=== PATIENT | male | born 1955 | race Caucasian/White ===

== ENCOUNTER 2025-10-11 17:43 | Emergency (ER) | payer OTHER, SELFPAY ==
[2025-10-11 17:46] VITALS: BP 157/84
[2025-10-11] MEDS: NSS 500 IV (18:35)
[2025-10-11 18:42] VITALS: BP 147/70
[2025-10-11 18:44] VITALS: BP 160/78
[2025-10-11 18:46] VITALS: BP 148/80
[2025-10-11 18:49] VITALS: BP 147/70; BP 148/80; BP 160/78; PULSE 72; PULSE 75; PULSE 84
--- NOTE | 2025-10-11 18:53 | ED.GENMED ---
History of Present Illness
General
Chief Complaint: Fainting/Passed Out
Source: patient
Exam Limitations: none
Time Seen by Provider: 10/11/25 18:13
Nursing documentation reviewed up to this point in time: agreed with
History of Present Illness
History of Present Illness:
see MDM
Past History
Past History
ED Past Medical History: HTN
Social History
Tobacco: Non-smoker
Alcohol: Occasional
Drug: None
Personal:
Review of Systems
Review of Systems
Allergies reviewed?: Yes
All Other Systems: Not applicable
Phy Exam
Physical Exam
Physical Exam:
GENERAL: Alert , in no apparent distress
EYE: pupils equal and reactive
NECK: Supple
ENT: o/p clr, mmm.
CARDIAC: Regular rate and rhythm .
no edema
LUNGS: Clear breath sounds bilaterally, no acute respiratory distress, no wheezes/rales/rhonchi
ABDOMEN: Soft, without focal tenderness, no r/g, no cvat, normal bowel sounds
NEUROLOGICAL: Alert and oriented, no focal neuro deficits
SKIN: Warm and dry, skin intact.
MUSCULOSKELETAL: No edema, well perfused. neg marilee's sign
PSYCH: Normal and appropriate interaction.
Course
Orders/Labs/Results
Orders:
Orders
10/11/25 17:48
ECG [Electrocardiogram (*1)] Urgent
Reason for Study: Syncope
10/11/25 17:49
EKG- Treatment ONCE
10/11/25 18:29
Orthostatic VS- Treatment ONCE
0.9% Sodium Chloride 500 ml [Nss] 500 ml IV BOLUS
10/11/25 18:32
Complete Blood Count/With Diff Urgent
Comprehensive Metabolic Panel Urgent
Troponin I Urgent
Abnormal Lab Results
10/11/25
18:32
WBC 12.0 H 10^3/uL
(4.8-10.8)
RBC 4.36 L 10^6/uL
(4.70-6.10)
MCH 31.2 H pg
(27.0-31.0)
Abs Immat Gran (auto) 0.1 H 10^3/uL
(0-0.05)
Absolute Neuts (auto) 8.8 H 10^3/uL
(1.4-6.5)
Absolute Monos (auto) 1.0 H 10^3/uL
(0.1-0.6)
Immature Gran % 0.6 H %
(0-0.5)
Lymphocytes % 17.0 L %
(20.5-51.1)
BUN 7 L mg/dl
(9-20)
Glucose 100 H mg/dl
(70-99)
10/11/25 18:32
10/11/25 18:32
Vital Signs
Initial and Last Documented VS:
Initial Vital Signs
Temp Pulse Resp BP Pulse Ox
36.7 C 83 18 157/84 98
10/11/25 17:46 10/11/25 17:46 10/11/25 17:46 10/11/25 17:46 10/11/25 17:46
Last Documented Vital Signs
Temp Pulse Resp BP Pulse Ox
36.7 C 71 17 150/75 98
10/11/25 17:46 10/11/25 19:15 10/11/25 19:00 10/11/25 19:00 10/11/25 19:15
MDM/Problems Addressed
Differential Diagnosis Includes:
see MDM
MDM/Problems Addressed:
Note:
CHIEF COMPLAINT(S)
Lightheadedness and syncope at a social event.
HISTORY OF PRESENT ILLNESS
The patient is 70 y/o male who experienced an episode of lightheadedness and subsequent syncope during a wedding tonight. The episode occurred at a [employer] where the patient consumed wine followed by a glass of whiskey. he was standing under
heat lamp. The patient informed friends of the sensation of lightheadedness and warmth just seconds before losing consciousness. The patient was caught by a friend, preventing any injuries from the fall. Upon regaining consciousness, the patient
reported feeling startled. The patient reports feeling fine now, albeit tired.
The patient mentioned a recent history of not consuming sufficient fluids and not eating well due to recent dental surgery. The patient denies experiencing chest pain, both during the episode of lightheadedness and currently. There is no history of
previous syncope, and there have been no recent changes in medication except for taking an antibiotic, amoxicillin, and ibuprofen 800 mg for dental issues.
The patient routinely consumes alcohol on weekends but clarified that there is no history of alcohol withdrawal symptoms when abstaining.
no cp, sob, weakness, vomiting, diarrhea, headache, confusion, blurry vision
PAST MEDICAL AND SURGICAL HISTORY
History of breast cancer treated with chemotherapy and radiation therapy. The patient is cancer-free for approximately ten years. Recent dental surgery.
CHRONIC MEDICAL CONDITIONS SIGNIFICANTLY AFFECTING CARE
History of hypertension and gastroesophageal reflux disease.
MEDICATIONS
Amoxicillin
Ibuprofen 800 mg
REVIEW OF SYSTEMS
- General: Recent tiredness.
- Cardiovascular: No chest pain during or after lightheadedness.
- Gastrointestinal: Recent decreased oral intake due to dental surgery.
- Neurological: Syncope episode; no previous similar episodes.
PLAN
The plan includes testing to check for electrolyte imbalances, hemoglobin levels, and cardiac markers due to the syncope episode likely secondary to potential dehydration or alcohol-related hypotension.
DIFFERENTIAL DIAGNOSIS
The Differential Diagnosis includes, in no particular order and is not limited to:
1. Vasovagal syncope
2. Dehydration
3. Orthostatic hypotension
4. Alcohol-induced hypotension
5. Cardiac arrhythmia
6. Hypoglycemia
7. Anemia
8. Electrolyte imbalance
9. Medication side effect
10. Stress-induced syncope
10/11/25 - 20:03
70-year-old male who has no cardiac history was at a wedding earlier today and had 2 alcoholic beverages and was standing on a heat lamp, suddenly felt lightheaded and warm and then passed out but had no trauma because his friends caught him. He
woke right up. He has no symptoms now. He is on amoxicillin for dental work recently. There is been no fever or shortness of breath when he walks. He has no murmur.
He has been slightly dehydrated, not eating and drinking as much since the dental work
Blood pressure was stable upon standing; no postural hypotension noted. Slightly elevated white blood cell count at 12, potentially due to recent dental work; patient reports soreness under the dental plate. Discussed provoked syncope likely from
dehydration exacerbated by alcohol, leading to transient hypotension. No indication of arrhythmia given prodromal symptoms. Cardiac markers are normal. no murmur or fever to be suspicious for endocarditis; Patient is reassured and does not require
overnight observation. Discharge instructions provided: return if experiencing symptoms such as syncope, chest pain, or fever.
*Pulse Oximetry
SaO2: 97
Oxygen Mode of Delivery: Room air
Patient hypoxic: no (98)
*Critical Care Note
Total Time (30-74mins, 75-104mins- exclusive of procedures): Not Applicable
ED Attending Note
-
Portions of this chart may have been created with voice recognition software.� Occasional wrong word or��sound alike� substitutions may have occurred due to the inherent limitations of voice recognition software.
Discharge Plan
Departure
Patient Disposition: Home (Routine Discharge)
Date of Disposition: 10/11/25
Time of Disposition: 20:03
Patient with high blood pressure during this ER visit?: No
Condition: Fair
Covid-19: Not Applicable
Discharge Problem:
Syncope
Instructions: Syncope (Fainting) (DC)
Referrals:
Eneida Zavala CRNP [Family Provider, Family Practice] - Follow up in 2-3 days
Activity Restrictions/Additional Instructions:
YOUR PASSING OUT EPISODE WAS PROBABLY A VASOVAGAL EPISODE
MAKE SURE TO STAY HDYRATED
RETURN FOR REPEATED PASSING OUT EPISODES, CHEST PAIN, SHORTNESS OF BREATH, CONFUSION,W EAKNESS, FEVER, ETC
OTHERWISE [facility] DOCTOR THIS WEEK
Interventions
Interventions:
*Risk Screen - Suicide Last Done: 10/11/25 18:33
*General Assessment Last Done: 10/11/25 17:46
*Neglect/Abuse Screening Last Done: 10/11/25 18:33
*ED COVID-19 Vaccine History Last Done: 10/11/25 18:33
*ED Influenza Vaccine History Last Done: 10/11/25 18:33
*Nursing Disposition Last Done: 10/11/25 20:43
ED- Cardiac Assessment Last Done: 10/11/25 18:51
ED- Neurological Assessment Last Done: 10/11/25 18:51
Discharge Date and Time
Discharge Date/Time: 10/11/25 20:44
Print Language: FAROESE
[2025-10-11 18:54] LABS: Hematocrit 40.1 % (39.0-52.0); Hemoglobin 13.6 g/dL (13.0-18.0); Mean Corp Hgb Conc. 33.9 g/dL (33.0-37.0); Mean Corpuscular Volume 92.0 fL (80.0-94.0); Nucleated Red Blood Cells % 0 % (-); Platelet Count 246 10^3/uL (130-400); Red Cell Dist. Width 12.3 % (11.5-14.5)
[2025-10-11 19:00] VITALS: BP 150/75
[2025-10-11 19:09] LABS: ALT (SGPT) 18 U/L (0-50); AST (SGOT) 18 U/L (17-59); Albumin 4.0 g/dl (3.5-5.0); Alkaline Phosphatase 77 U/L (38-126); Blood Urea Nitrogen 7 mg/dl (9-20); Calcium 8.8 mg/dl (8.4-10.2); Carbon Dioxide 23 mmol/L (22-30); Chloride 104 mmol/L (98-107); Glucose 100 mg/dl (70-99); Potassium 3.7 mmol/L (3.5-5.1); Sodium 137 mmol/L (135-145); Total Protein 6.6 g/dl (6.3-8.2); eGFR > 60.00
[2025-10-11 19:17] LABS: Troponin I < 0.012 ng/ml
== END 2025-10-11 20:44 | disposition home or self-care (01) ==
LOC: EMR 17:43
PROVIDERS: Physician Assistant; EMERGENCY PHYSICIAN Emergency Medicine; FAMILY PHYSICIAN Nurse Practitioner Adult Health
DX: R55 Syncope and collapse (principal); I10 Essential (primary) hypertension; Z85.3 Personal history of malignant neoplasm of breast; Z92.3 Personal history of irradiation; Z92.21 Personal history of antineoplastic chemotherapy
CPT/HCPCS: 99284; 96360; 80053; 84484; 85025; 93005